=== PATIENT | female | born 1940 | race Caucasian/White ===

== ENCOUNTER 2016-10-14 09:11 | Emergency (ER) | payer OTHER, BC ==
[2016-10-14 09:16] VITALS: RESP 18
--- NOTE | 2016-10-14 09:30 | CPEKG ---
Heart Rate: 87 RR Interval: 690 P-R Interval: 164 QRSD Interval: 92 QT Interval: 348 QTC Interval: 419 P Paulding: 83 QRS Paulding: 59 T Wave Paulding: 32 EKG Severity - NORMAL ECG - EKG Impression: SINUS RHYTHM Electronically Signed By: Ronal Patel 15-Oct-2016 12:15:05
--- NOTE | 2016-10-14 09:36 | EDPHY ---
H & P Stated Complaint: Syncopal episode Time Seen by Provider: 10/14/16 09:24 HPI/ROS: CHIEF COMPLAINT: Syncope HISTORY OF PRESENT ILLNESS: The patient is a 76 year old female presenting to the emergency department after a syncopal episode at [place] this morning. The patient started to feel thirsty, diaphoretic, lightheaded, and thought she was going to have a bowel movement. She sat down on the [place]ahai pew and then passed out. She does not think she was unconscious for long and she was able to recognize her friend when she came to. She did not fall off the bench or suffer from any head trauma. She denies chest pain, shortness of breath, or palpitations. The patient had a stress test done last year that was normal. The patient currently has a sinus infection. She took 2 Advil before bed last night. She had a normal morning and felt fine until standing at [place]. The patient no longer feels lightheaded or diaphoretic. Patient has no history of coronary artery disease, hypertension, diabetes, nonsmoker. No history of hypercholesterolemia. REVIEW OF SYSTEMS: Aside from elements discussed in the HPI, a comprehensive 10-point review of systems was reviewed and is negative. PAST MEDICAL HISTORY: Osteoarthritis. PSH: Hip replacement. SOCIAL HISTORY: Nonsmoker. Occasional alcohol. VITAL SIGNS: Reviewed by me GENERAL: Well-developed, well-nourished, resting comfortably in no respiratory distress. HEENT: Atraumatic. Eyes: No icterus, no injection. Mouth: moist mucous membranes. No erythema or lesions. Neck: supple with no adenopathy. LUNGS: Clear to auscultation bilaterally, no wheezes, rhonchi or rales. CARDIAC: Regular rate and rhythm, no rubs, murmurs or gallops. ABDOMEN: Soft, nontender, nondistended, bowel sounds normal. BACK: No CVA tenderness. EXTREMITIES: No trauma. No edema. Range of motion is normal throughout. NEURO: Alert and oriented, grossly nonfocal. SKIN: Warm and dry, no rash. PSYCHIATRIC: Normal mentation, no agitation. Portions of this note were transcribed by a medical secretary receptionist. I personally performed a history, physical exam, medical decision making, and confirmed accuracy of information the transcribed note. - Personal History Current Tetanus Diphtheria and Acellular Pertussis (TDAP): Yes - Medical/Surgical History Other PMH: GERD. hiatal hernia. bilat hip replacemwnt. anxiety - Social History Smoking Status: Never smoked Constitutional: Initial Vital Signs Temperature (C) 36.9 C 10/14/16 09:12 Heart Rate 95 10/14/16 09:12 Respiratory Rate 18 10/14/16 09:12 Blood Pressure 126/69 H 10/14/16 09:12 O2 Sat (%) 95 10/14/16 09:12 O2 Delivery Mode Room Air Allergies/Adverse Reactions: morphine Allergy (Verified 10/14/16 09:12) Home Medications: Medication Instructions Recorded Aspirin [Aspirin 81mg (*)] 81 mg PO DAILY 10/14/16 Estradiol [Vivelle-Dot 0.05MG (*)] 0.05 mg TD TuSa@0800 10/14/16 Pantoprazole Sodium [Protonix 40mg 40 mg PO 10/14/16 (*)] Progesterone,Micronized 100 mg PO 10/14/16 [Prometrium] Venlafaxine HCl [Venlafaxine 25MG 25 mg PO 10/14/16 (*)] Medical Decision Making - Diagnostics EKG Interpretation: The 12 lead EKG was interpreted by myself. See hard copy and/or "tracemaster" electronic copy for interpretation: Sinus rhythm, rate 87. Imaging: X-ray: Chest x-ray was obtained. I viewed the images myself on the PACS system. My interpretation of the images is: Normal, no acute cardiopulmonary abnormalities. The radiologist interpretation is pending at this time. I discussed the x-ray findings with the patient. ED Course/Re-evaluation: 76-year-old female presenting to the emergency department after a syncopal event at discharge. Patient's history sounds quite vasovagal to me. Patient's evaluation is reassuring. Normal labs, negative troponin, normal chest x-ray, nonischemic EKG. Patient has normal orthostatics. The patient will be discharged to follow up with the primary care physician. She understands importance of staying well hydrated, get plenty of rest, returning to the emergency department following up urgently if she develops any symptoms of chest pain, shortness of breath, or other concerns. Differential Diagnosis: Differential diagnosis for the patient's syncope was considered including but not limited to vasovagal syncope, arrhythmia, dehydration, and blood loss. - Data Points Laboratory Results: Laboratory Results 10/14/16 09:32 10/14/16 09:32 10/14/16 10/14/16 09:32 09:32 WBC 5.91 10^3/uL 10^3/uL (3.80-9.50) RBC 4.43 10^6/uL 10^6/uL (4.18-5.33) Hgb 14.5 g/dL g/dL (12.6-16.3) Hct 42.9 % % (38.0-47.0) MCV 96.8 fL fL (81.5-99.8) MCH 32.7 pg pg (27.9-34.1) MCHC 33.8 g/dL g/dL (32.4-36.7) RDW 12.0 % % (11.5-15.2) Plt Count 246 10^3/uL 10^3/uL (150-400) MPV 9.6 fL fL (8.7-11.7) Neut % (Auto) 74.7 % H % (39.3-74.2) Lymph % (Auto) 14.4 % L % (15.0-45.0) [place] % (Auto) 9.1 % % (4.5-13.0) Eos % (Auto) 0.8 % % (0.6-7.6) Baso % (Auto) 0.8 % % (0.3-1.7) Nucleat RBC Rel Count 0.0 % % (0.0-0.2) Absolute Neuts (auto) 4.41 10^3/uL 10^3/uL (1.70-6.50) Absolute Lymphs (auto) 0.85 10^3/uL L 10^3/uL (1.00-3.00) Absolute Monos (auto) 0.54 10^3/uL 10^3/uL (0.30-0.80) Absolute Eos (auto) 0.05 10^3/uL 10^3/uL (0.03-0.40) Absolute Basos (auto) 0.05 10^3/uL 10^3/uL (0.02-0.10) Absolute Nucleated RBC 0.00 10^3/uL 10^3/uL (0-0.01) Immature Gran % 0.2 % % (0.0-1.1) Immature Gran # 0.01 10^3/uL 10^3/uL (0.00-0.10) Sodium 140 mEq/L mEq/L (134-144) Potassium 4.0 mEq/L mEq/L (3.5-5.2) Chloride 105 mEq/L mEq/L (97-110) Carbon Dioxide 26 mEq/l mEq/l (22-31) Anion Gap 9 mEq/L mEq/L (8-16) BUN 11 mg/dL mg/dL (7-23) Creatinine 0.8 mg/dL mg/dL (0.6-1.0) Estimated GFR > 60 Glucose 119 mg/dL H mg/dL (70-100) Calcium 9.1 mg/dL mg/dL (8.5-10.4) Troponin I < 0.012 ng/mL ng/mL (0-0.034) Lipase 38.0 IU/L IU/L (23-300) Medications Given: Discontinued Medications Sodium Chloride (Ns) 500 mls @ 0 mls/hr IV ONCE ONE PRN Reason: As Directed Stop: 10/14/16 09:39 Last Admin: 10/14/16 09:40 Dose: 500 mls Departure - Departure Disposition: Home, Routine, Self-Care Clinical Impression: Syncope Qualifiers: Syncope type: vasovagal syncope Qualified Code(s): R55 - Syncope and collapse Condition: Good Instructions: Syncope (ED) Additional Instructions: 1. Your EKG today was normal. 2. Drink plenty of fluids for the next 24 hours. 3. Followup with your primary care physician as needed. 4. Return to the Emergency Department if you develop chest pain, shortness of breath, palpitations, new, or worsening symptoms. Referrals: Alberta Terry MD [Primary Care Provider] - As per Instructions Report Scribed for: Amaris Ayers Report Scribed by: Mayra Roy Date of Report: 10/14/16 Time of Report: 09:37
[2016-10-14] MEDS ORDERED: NS 500 ML IV ONE (09:38)
[2016-10-14 09:44] LABS: % IMMATURE GRANULYOCYTES 0.2 % (0.0-1.1); ABSOLUTE IMMATURE GRANULOCYTES 0.01 10^3/uL (0.00-0.10); ADD DIFF? NO; ADD MORPH? NO; ADD SCAN? NO; ATYPICAL LYMPHOCYTE FLAG 10 (0-99); FRAGMENT RBC FLAG 0 (0-99); HEMATOCRIT 42.9 % (38.0-47.0); HEMOGLOBIN 14.5 g/dL (12.6-16.3); LEFT SHIFT FLG 0 (0-99); LIPEMIA HEMOLYSIS FLAG 90 (0-99); MEAN CELL HEMOGLOBIN 32.7 pg (27.9-34.1); MEAN CELL HEMOGLOBIN CONCENTR. 33.8 g/dL (32.4-36.7); MEAN CELL VOLUME 96.8 fL (81.5-99.8); MEAN PLATELET VOLUME 9.6 fL (8.7-11.7); PLATELET CLUMPS FLAG 0 (0-99); PLATELET COUNT 246 10^3/uL (150-400); RED BLOOD CELL COUNT 4.43 10^6/uL (4.18-5.33)
[2016-10-14 09:58] LABS: ANION GAP 9 mEq/L (8-16); CALCIUM 9.1 mg/dL (8.5-10.4); CARBON DIOXIDE 26 mEq/l (22-31); CHLORIDE 105 mEq/L (97-110); CREATININE 0.8 mg/dL (0.6-1.0); GLOMERULAR FILTRATION RATE > 60; GLUCOSE 119 mg/dL (70-100); SODIUM 140 mEq/L (134-144)
[2016-10-14 10:10] LABS: TROPONIN I < 0.012 ng/mL (0-0.034)
[2016-10-14 11:38] VITALS: O2SAT 96
[2016-10-14 12:18] VITALS: BP 136/63; PULSE 95
[2016-10-14 12:23] VITALS: TEMP 98.1
== END 2016-10-14 12:23 | disposition home or self-care (01) ==
DX: R55 Syncope and collapse (principal); Z79.82 Long term (current) use of aspirin

== ENCOUNTER → 2017-09-07 | Outpatient (CLI) | payer OTHER, BC | LOC: CIMAGING 15:06 | PROVIDERS: ATTEND Internal Medicine Geriatric Medicine | DX: E04.2 Nontoxic multinodular goiter (principal) | CPT/HCPCS: 76536-PO ==

== ENCOUNTER → 2017-09-15 | Outpatient (CLI) | payer OTHER, BC ==
[~2017-09-15] MED LIST: LIDOCAINE 1% 300 MG/30 ML SDV ONE
== END ==
LOC: FIMAGING 11:41
PROVIDERS: ATTEND Internal Medicine Geriatric Medicine
PROC: 0G9H3ZX Drainage of Right Thyroid Gland Lobe, Percutaneous Approach, Diagnostic (ICD-10-PCS; principal; 2017-09-15)
DX: E04.1 Nontoxic single thyroid nodule (principal)

== ENCOUNTER 2018-06-23 08:53 | Emergency (ER) | payer OTHER, BC ==
[2018-06-23 09:17] LABS: PLATELET COUNT 254 10^3/uL (150-400)
--- NOTE | 2018-06-23 09:22 | EDPHY ---
H & P Stated Complaint: cp Time Seen by Provider: 06/23/18 09:02 HPI/ROS: CHIEF COMPLAINT: Chest pain HISTORY OF PRESENT ILLNESS: 77-year-old female presents with chest pain. She was sitting in hindu this morning when she developed sharp and stabbing pain in her right ear. The pain radiated to her right jaw and then down into her chest. The pain waxed and waned and now has almost completely resolved. The intense ear/jaw pain lasted approximately 10-15 minutes. History of prior similar symptoms in 2014. She had a cardiac catheterization at that time which demonstrated minimal CAD. She is followed by Dr. Daryl Pearson at [facility]. REVIEW OF SYSTEMS: complete 10 point ROS reviewed and is negative except for the noted elements in the HPI Source: Patient - Personal History Current Tetanus Diphtheria and Acellular Pertussis (TDAP): Yes - Medical/Surgical History Hx Asthma: No Hx Chronic Respiratory Disease: No Hx Diabetes: No Hx Cardiac Disease: No Hx Renal Disease: No Hx Cirrhosis: No Hx Alcoholism: No Hx HIV/AIDS: No Hx Splenectomy or Spleen Trauma: No Other PMH: GERD. hiatal hernia. bilat hip replacemwnt. anxiety - Social History Smoking Status: Never smoked Additional Social History: - Physical Exam Exam: General Appearance: Alert, pleasant Eyes: Pupils equal and round, no conjunctival pallor or injection ENT, Mouth: Mucous membranes moist, TM is normal Neck: Normal inspection, no tenderness Respiratory: Lungs are clear to auscultation Cardiovascular: Regular rate and rhythm, no murmur Gastrointestinal: Abdomen is soft and nontender Neurological: A&O, nonfocal exam Skin: Warm and dry, no rash Extremities: Nontender, no pedal edema Psychiatric: Mood and affect normal Constitutional: Initial Vital Signs Temperature (C) 36.3 C 06/23/18 08:55 Heart Rate 74 06/23/18 08:55 Respiratory Rate 18 06/23/18 08:55 Blood Pressure 135/70 H 06/23/18 08:55 O2 Sat (%) 94 06/23/18 08:55 O2 Delivery Mode Room Air Allergies/Adverse Reactions: morphine Allergy (Verified 06/23/18 08:54) Home Medications: Medication Instructions Recorded Aspirin [Aspirin 81mg (*)] 81 mg PO DAILY 10/14/16 Venlafaxine HCl [Venlafaxine 25MG 25 mg PO 10/14/16 (*)] Medical Decision Making - Diagnostics EKG Interpretation: EKG interpreted by me reveals normal sinus rhythm, rate 71, no ST or T segment changes. Interpretation: Normal EKG Imaging Results: Imaging Impressions Chest X-Ray 06/23/18 09:09 Impression: No acute pulmonary disease. Imaging: I viewed and interpreted images myself ED Course/Re-evaluation: This patient presents with atypical chest pain. Stat EKG reveals no evidence of ischemia or dysrhythmia. Old medical record review and prior cardiac catheterization revealed minimal CAD. Initial troponin is normal. I do not feel that further cardiac evaluation is indicated today and feel that I can safely exclude acute coronary syndrome. In addition there is no evidence of pulmonary embolism I clinical history and she does not have risk factors for pulmonary embolism. Etiology of her recurrent symptoms is unclear. However, I feel that she is safe and stable for discharge home. Differential Diagnosis: Differential diagnosis includes though it is not limited to pneumonia, pneumothorax, pulmonary embolism, aortic dissection, pericarditis, acute coronary syndrome. - Data Points Laboratory Results: Laboratory Results 06/23/18 09:00 06/23/18 09:00 06/23/18 06/23/18 06/23/18 09:06 09:00 09:00 WBC 4.74 10^3/uL 10^3/uL (3.80-9.50) RBC 4.21 10^6/uL 10^6/uL (4.18-5.33) Hgb 13.5 g/dL g/dL (12.6-16.3) Hct 40.5 % % (38.0-47.0) MCV 96.2 fL fL (81.5-99.8) MCH 32.1 pg pg (27.9-34.1) MCHC 33.3 g/dL g/dL (32.4-36.7) RDW 12.0 % % (11.5-15.2) Plt Count 254 10^3/uL 10^3/uL (150-400) MPV 9.9 fL fL (8.7-11.7) Neut % (Auto) 46.0 % % (39.3-74.2) Lymph % (Auto) 43.5 % % (15.0-45.0) [place] % (Auto) 8.2 % % (4.5-13.0) Eos % (Auto) 1.7 % % (0.6-7.6) Baso % (Auto) 0.6 % % (0.3-1.7) Nucleat RBC Rel Count 0.0 % % (0.0-0.2) Absolute Neuts (auto) 2.18 10^3/uL 10^3/uL (1.70-6.50) Absolute Lymphs (auto) 2.06 10^3/uL 10^3/uL (1.00-3.00) Absolute Monos (auto) 0.39 10^3/uL 10^3/uL (0.30-0.80) Absolute Eos (auto) 0.08 10^3/uL 10^3/uL (0.03-0.40) Absolute Basos (auto) 0.03 10^3/uL 10^3/uL (0.02-0.10) Absolute Nucleated RBC 0.00 10^3/uL 10^3/uL (0-0.01) Immature Gran % 0.0 % % (0.0-1.1) Immature Gran # 0.00 10^3/uL 10^3/uL (0.00-0.10) Sodium 140 mEq/L mEq/L (135-145) Potassium 3.9 mEq/L mEq/L (3.3-5.0) Chloride 105 mEq/L mEq/L (97-110) Carbon Dioxide 27 mEq/l mEq/l (22-31) Anion Gap 8 mEq/L mEq/L (6-14) BUN 13 mg/dL mg/dL (7-23) Creatinine 0.7 mg/dL mg/dL (0.6-1.0) Estimated GFR > 60 Glucose 91 mg/dL mg/dL (70-100) Calcium 9.1 mg/dL mg/dL (8.5-10.4) POC Troponin I 0.00 ng/mL ng/mL (0.00-0.08) NT-Pro-B Natriuret Pep 74 pg/mL pg/mL (0-450) Point of Care Test Results: Chemistry 06/23/18 09:06 POC Troponin I 0.00 ng/mL ng/mL (0.00-0.08) Departure - Departure Disposition: Home, Routine, Self-Care Clinical Impression: Chest pain Qualifiers: Chest pain type: other chest pain Qualified Code(s): R07.89 - Other chest pain Condition: Good Instructions: Chest Pain (ED) Referrals: Ap Pearson MD [Medical Doctor] - As per Instructions
[2018-06-23 09:56] VITALS: BP 136/85
--- NOTE | 2018-06-24 15:34 | CPEKG ---
Test Reason : OPEN Blood Pressure : / mmHG Vent. Rate : 071 BPM Atrial Rate : 072 BPM P-R Int : 167 ms QRS Dur : 101 ms QT Int : 381 ms P-R-T Axes : 078 057 031 degrees QTc Int : 414 ms Sinus rhythm Confirmed by Annemarie Pablo ([id number]) on 06/24/2018 3:33:47 PM Referred By: Confirmed By:Annemarie Pablo
== END 2018-06-23 10:05 | disposition home or self-care (01) ==
DX: R07.89 Other chest pain (principal); K21.9 Gastro-esophageal reflux disease without esophagitis; F41.9 Anxiety disorder, unspecified
CPT/HCPCS: 84484-PO

== ENCOUNTER → 2018-07-26 | Outpatient (CLI) | payer OTHER, BC | LOC: FIMAGING 14:23 | PROVIDERS: ATTEND Internal Medicine Geriatric Medicine | DX: I67.2 Cerebral atherosclerosis (principal); R27.0 Ataxia, unspecified; R51 Headache ==

== ENCOUNTER → 2019-01-17 | Outpatient (CLI) | payer OTHER, BC | LOC: BHFA 08:30 | PROVIDERS: ATTEND Internal Medicine Cardiovascular Disease | DX: R07.9 Chest pain, unspecified (principal); M79.602 Pain in left arm; R55 Syncope and collapse | CPT/HCPCS: 78452; 93017; A9500 ==